=== PATIENT | female | born 1965 | race Caucasian/White ===

== ENCOUNTER 2021-02-02 13:25 | Inpatient (IN) ==
[2021-02-04] MEDS ORDERED: Dextrose Gel 15 GM/37.5 ML TUBE PO PRN ×2 (17:13)
[2021-02-04] MEDS ORDERED: D5% in Water 1,000 ML IVC PRN (17:13)
[2021-02-04] MEDS ORDERED: *HR* Dextrose 50 % in Water (Vial) 50 ML VIAL IVP PRN (17:13)
[2021-02-04] MEDS ORDERED: methocarbamoL 500 MG TABLET PO PRN (17:33)
[2021-02-04] MEDS ORDERED: *HR* Methotrexate 2.5 MG TABLET PO SCH (17:45)
[2021-02-04] MEDS: Furosemide 20 MG TABLET PO SCH (18:21)
[2021-02-04] MEDS: *HR* OxyCODONE Immed Rel 5 MG TABLET PO PRN (18:21)
[2021-02-04] MEDS: Insulin LISPRO 300 UNITS/3 ML VIAL SUBQ SCH (19:49)
[2021-02-04] MEDS: Pregabalin 75 MG CAPSULE PO SCH (19:49)
[2021-02-05] MEDS: *HR* OxyCODONE Immed Rel 5 MG TABLET PO PRN (01:21)
[2021-02-05 06:43] LABS: Basophils % 0.4 %; Eosinophils # 0.1 K/mcL (0.0-0.6); Eosinophils % 1.1 %; Hematocrit 23.8 % (35.3-44.9); Hemoglobin 7.8 g/dL (11.5-15.4); Immature Granulocytes % 3.3 % (0-4); Lymphocytes # 1.7 K/mcL (0.6-4.6); Lymphocytes % 19.2 %; Mean Corpuscular HGB Conc 32.8 g/dL (31.6-35.5); Mean Corpuscular Hemoglobin 30.7 pg (28.0-33.3); Mean Corpuscular Volume 93.7 fL (83.0-100.0); Mean Platelet Volume 9.8 fL (9.4-12.4); Monocytes # 0.6 K/mcL (0.0-1.3); Neutrophils # 6.2 K/mcL (1.6-8.9); Nucleated Red Blood Cells 0.3 /100 WBC (0); Platelet Count 268 K/mcL (140-400); Red Blood Count 2.54 M/mcL (3.82-4.97); Red Cell Distribution Width 13.8 % (11.5-14.5); White Blood Count 9.1 K/mcL (4.3-11.1)
[2021-02-05 07:10] LABS: BUN/Creatinine Ratio 25 (6-26); Blood Urea Nitrogen 14 mg/dL (6-20); Calcium 8.4 mg/dL (8.6-10.3); Carbon Dioxide 32 mEq/L (23-29); Chloride 100 mEq/L (98-107); Glucose 162 mg/dL (70-105); Osmolality,Calculated 296 (280-300); Potassium 3.5 mEq/L (3.5-5.1); Sodium 141 mEq/L (136-145); eGFR For African Americans > 60 (> 60); eGFR For Non-African Americans > 60 (> 60)
[2021-02-05] MEDS: *HR* Enoxaparin 40 MG/0.4 ML SYRINGE SQ SCH (09:37)
[2021-02-05] MEDS: Furosemide 20 MG TABLET PO SCH ×2 (09:37→16:55)
[2021-02-05] MEDS: Insulin LISPRO 300 UNITS/3 ML VIAL SUBQ SCH ×4 (09:37→19:55)
[2021-02-05] MEDS: Pregabalin 75 MG CAPSULE PO SCH ×2 (09:37→19:54)
[2021-02-05] MEDS: Famotidine 20 MG TABLET PO SCH (09:37)
[2021-02-05] MEDS: Loratadine 10 MG TABLET PO SCH (09:37)
[2021-02-05] MEDS: *HR* Metformin 500 MG TABLET PO SCH (09:38)
[2021-02-05] MEDS: Folic Acid 1 MG TABLET PO SCH (09:38)
[2021-02-05] MEDS: Prenatal Vit/FA 1 EACH TABLET PO SCH (09:38)
[2021-02-05 13:21] LABS: Estimated Average Glucose 140 mg/dl; Hemoglobin A1C 6.5 %
[2021-02-05 19:39] LABS: Adenovirus F 40/41 PCR Not detected (Not detect); Astrovirus PCR Not detected (Not detect); C.difficile Toxin A/B Gene PCR DETECTED (Not detect); Campylobacter by PCR Not detected (Not detect); Cryptosporidium by PCR Not detected (Not detect); Cyclospora cayetanensis PCR Not detected (Not detect); E. coli O157 by PCR Not detected (Not detect); Entamoeba histolytica PCR Not detected (Not detect); Enteroaggregative E.coli(EAEC) Not detected (Not detect); Enteropathogenic E.coli(EPEC) Not detected (Not detect); Enterotoxigenic E.coli (ETEC) Not detected (Not detect); Giardia lamblia PCR Not detected (Not detect); Norovirus GI/GII PCR Not detected (Not detect); Plesiomonas shigelloides PCR Not detected (Not detect); Rotavirus A PCR Not detected (Not detect); Salmonella PCR Not detected (Not detect); Sapovirus PCR Not detected (Not detect); Shig/EnteroinvasiveE coli EIEC Not detected (Not detect); Shigalike tox-prod E coli STEC Not detected (Not detect); Vibrio PCR Not detected (Not detect); Vibrio cholerae PCR Not detected (Not detect); Yersinia enterocolitica PCR Not detected (Not detect)
[2021-02-05] MEDS: Acetaminophen 325 MG TABLET PO PRN (19:54)
[2021-02-06] MEDS: Acetaminophen 325 MG TABLET PO PRN ×3 (01:31→20:11)
[2021-02-06] MEDS: *HR* Enoxaparin 40 MG/0.4 ML SYRINGE SQ SCH (04:57)
[2021-02-06] MEDS: *HR* Metformin 500 MG TABLET PO SCH (08:08)
[2021-02-06] MEDS: *HR* OxyCODONE Immed Rel 5 MG TABLET PO PRN ×2 (08:08→23:54)
[2021-02-06] MEDS: Famotidine 20 MG TABLET PO SCH (08:08)
[2021-02-06] MEDS: Pregabalin 75 MG CAPSULE PO SCH ×2 (08:09→20:11)
[2021-02-06] MEDS: Prenatal Vit/FA 1 EACH TABLET PO SCH (08:09)
[2021-02-06] MEDS: Insulin LISPRO 300 UNITS/3 ML VIAL SUBQ SCH ×4 (08:09→20:12)
[2021-02-06] MEDS: Furosemide 20 MG TABLET PO SCH ×2 (08:09→17:35)
[2021-02-06] MEDS: Folic Acid 1 MG TABLET PO SCH (08:09)
[2021-02-06] MEDS: Loratadine 10 MG TABLET PO SCH (08:09)
[2021-02-07] MEDS: *HR* Enoxaparin 40 MG/0.4 ML SYRINGE SQ SCH (04:50)
[2021-02-07] MEDS: *HR* OxyCODONE Immed Rel 5 MG TABLET PO PRN ×3 (05:56→21:16)
[2021-02-07] MEDS: Loratadine 10 MG TABLET PO SCH (08:14)
[2021-02-07] MEDS: Folic Acid 1 MG TABLET PO SCH (08:14)
[2021-02-07] MEDS: Famotidine 20 MG TABLET PO SCH (08:14)
[2021-02-07] MEDS: Furosemide 20 MG TABLET PO SCH ×2 (08:14→17:35)
[2021-02-07] MEDS: Prenatal Vit/FA 1 EACH TABLET PO SCH (08:14)
[2021-02-07] MEDS: Pregabalin 75 MG CAPSULE PO SCH ×2 (08:15→21:17)
[2021-02-07] MEDS: *HR* Metformin 500 MG TABLET PO SCH (08:15)
[2021-02-07] MEDS: Insulin LISPRO 300 UNITS/3 ML VIAL SUBQ SCH ×4 (08:15→21:17)
[2021-02-07] MEDS: Acetaminophen 325 MG TABLET PO PRN (19:21)
[2021-02-08] MEDS: Acetaminophen 325 MG TABLET PO PRN ×3 (00:52→20:55)
[2021-02-08 04:45] LABS: Hematocrit 26.6 % (35.3-44.9); Hemoglobin 8.6 g/dL (11.5-15.4); Mean Corpuscular HGB Conc 32.3 g/dL (31.6-35.5); Mean Corpuscular Hemoglobin 30.7 pg (28.0-33.3); Mean Platelet Volume 9.3 fL (9.4-12.4); Platelet Count 377 K/mcL (140-400); Red Cell Distribution Width 15.9 % (11.5-14.5); White Blood Count 10.2 K/mcL (4.3-11.1)
[2021-02-08 05:01] LABS: Alanine Aminotransferase 40 Units/L (7-52); Albumin 3.4 g/dL (3.5-5.7); Albumin/Globulin Ratio 1.3 (1.1-2.2); Alkaline Phosphatase 113 Units/L (34-104); Aspartate Amino Transferase 28 Units/L (13-39); BUN/Creatinine Ratio 22 (6-26); Bilirubin,Total 0.9 mg/dL (0.3-1.0); Blood Urea Nitrogen 13 mg/dL (6-20); Calcium 9.1 mg/dL (8.6-10.3); Carbon Dioxide 32 mEq/L (23-29); Chloride 99 mEq/L (98-107); Globulin 2.6 g/dL (2.4-3.5); Glucose 165 mg/dL (70-105); Magnesium 1.9 mg/dL (1.6-2.6); Osmolality,Calculated 290 (280-300); Potassium 4.2 mEq/L (3.5-5.1); Sodium 138 mEq/L (136-145); eGFR For African Americans > 60 (> 60); eGFR For Non-African Americans > 60 (> 60)
[2021-02-08] MEDS: *HR* OxyCODONE Immed Rel 5 MG TABLET PO PRN ×2 (05:01→14:20)
[2021-02-08] MEDS: *HR* Enoxaparin 40 MG/0.4 ML SYRINGE SQ SCH (05:02)
[2021-02-08] MEDS: Pregabalin 75 MG CAPSULE PO SCH ×2 (09:33→20:56)
[2021-02-08] MEDS: *HR* Metformin 500 MG TABLET PO SCH (09:33)
[2021-02-08] MEDS: Insulin LISPRO 300 UNITS/3 ML VIAL SUBQ SCH ×4 (09:33→20:56)
[2021-02-08] MEDS: Loratadine 10 MG TABLET PO SCH (09:34)
[2021-02-08] MEDS: Folic Acid 1 MG TABLET PO SCH (09:34)
[2021-02-08] MEDS: Furosemide 20 MG TABLET PO SCH ×2 (09:34→16:18)
[2021-02-08] MEDS: Famotidine 20 MG TABLET PO SCH (09:34)
[2021-02-08] MEDS: Prenatal Vit/FA 1 EACH TABLET PO SCH (09:34)
[2021-02-08] MEDS ORDERED: Ondansetron ODT 4 MG TAB.RAPDIS SL PRN (16:52)
[2021-02-09] MEDS: *HR* OxyCODONE Immed Rel 5 MG TABLET PO PRN ×2 (03:50→21:08)
[2021-02-09] MEDS: *HR* Enoxaparin 40 MG/0.4 ML SYRINGE SQ SCH (03:50)
[2021-02-09] MEDS: Insulin LISPRO 300 UNITS/3 ML VIAL SUBQ SCH ×4 (07:43→21:10)
[2021-02-09] MEDS: Prenatal Vit/FA 1 EACH TABLET PO SCH (07:44)
[2021-02-09] MEDS: Folic Acid 1 MG TABLET PO SCH (07:44)
[2021-02-09] MEDS: Famotidine 20 MG TABLET PO SCH (07:44)
[2021-02-09] MEDS: *HR* Metformin 500 MG TABLET PO SCH (07:44)
[2021-02-09] MEDS: Loratadine 10 MG TABLET PO SCH (07:45)
[2021-02-09] MEDS: Furosemide 20 MG TABLET PO SCH ×2 (07:45→17:26)
[2021-02-09] MEDS: Pregabalin 75 MG CAPSULE PO SCH ×2 (07:45→21:09)
[2021-02-10] MEDS: *HR* Enoxaparin 40 MG/0.4 ML SYRINGE SQ SCH (04:08)
[2021-02-10] MEDS: Famotidine 20 MG TABLET PO SCH (09:52)
[2021-02-10] MEDS: Pregabalin 75 MG CAPSULE PO SCH ×2 (09:52→20:01)
[2021-02-10] MEDS: Furosemide 20 MG TABLET PO SCH ×2 (09:53→17:31)
[2021-02-10] MEDS: Prenatal Vit/FA 1 EACH TABLET PO SCH (09:53)
[2021-02-10] MEDS: Folic Acid 1 MG TABLET PO SCH (09:53)
[2021-02-10] MEDS: Loratadine 10 MG TABLET PO SCH (09:53)
[2021-02-10] MEDS: *HR* Metformin 500 MG TABLET PO SCH (09:53)
[2021-02-10] MEDS: Insulin LISPRO 300 UNITS/3 ML VIAL SUBQ SCH ×4 (09:54→20:01)
[2021-02-10] MEDS: *HR* OxyCODONE Immed Rel 5 MG TABLET PO PRN (20:02)
[2021-02-11] MEDS: Acetaminophen 325 MG TABLET PO PRN ×2 (03:20→14:28)
[2021-02-11] MEDS: *HR* Enoxaparin 40 MG/0.4 ML SYRINGE SQ SCH (05:06)
[2021-02-11 05:15] LABS: Basophils % 0.3 %; Eosinophils # 0.2 K/mcL (0.0-0.6); Eosinophils % 1.5 %; Hematocrit 30.4 % (35.3-44.9); Hemoglobin 9.8 g/dL (11.5-15.4); Immature Granulocytes % 1.5 % (0-4); Lymphocytes # 2.5 K/mcL (0.6-4.6); Lymphocytes % 19.5 %; Mean Corpuscular HGB Conc 32.2 g/dL (31.6-35.5); Mean Corpuscular Volume 96.2 fL (83.0-100.0); Mean Platelet Volume 9.4 fL (9.4-12.4); Monocytes # 0.9 K/mcL (0.0-1.3); Neutrophils # 9.1 K/mcL (1.6-8.9); Platelet Count 438 K/mcL (140-400); Red Blood Count 3.16 M/mcL (3.82-4.97); Red Cell Distribution Width 16.9 % (11.5-14.5); Segmented Neutrophils % 70.2 %; White Blood Count 12.9 K/mcL (4.3-11.1)
[2021-02-11 05:30] LABS: BUN/Creatinine Ratio 20 (6-26); Blood Urea Nitrogen 14 mg/dL (6-20); Calcium 8.9 mg/dL (8.6-10.3); Carbon Dioxide 31 mEq/L (23-29); Chloride 96 mEq/L (98-107); Glucose 181 mg/dL (70-105); Osmolality,Calculated 285 (280-300); Potassium 4.3 mEq/L (3.5-5.1); Sodium 135 mEq/L (136-145); eGFR For African Americans > 60 (> 60); eGFR For Non-African Americans > 60 (> 60)
[2021-02-11] MEDS: *HR* Metformin 500 MG TABLET PO SCH (08:08)
[2021-02-11] MEDS: Pregabalin 75 MG CAPSULE PO SCH ×2 (08:09→21:54)
[2021-02-11] MEDS: Folic Acid 1 MG TABLET PO SCH (08:09)
[2021-02-11] MEDS: Prenatal Vit/FA 1 EACH TABLET PO SCH (08:09)
[2021-02-11] MEDS: Famotidine 20 MG TABLET PO SCH (08:09)
[2021-02-11] MEDS: Loratadine 10 MG TABLET PO SCH (08:09)
[2021-02-11] MEDS: Furosemide 20 MG TABLET PO SCH ×2 (08:09→14:37)
[2021-02-11] MEDS: Insulin LISPRO 300 UNITS/3 ML VIAL SUBQ SCH ×4 (08:30→21:38)
[2021-02-11] MEDS: *HR* OxyCODONE Immed Rel 5 MG TABLET PO PRN (21:54)
[2021-02-12] MEDS: *HR* OxyCODONE Immed Rel 5 MG TABLET PO PRN (03:54)
[2021-02-12] MEDS: *HR* Enoxaparin 40 MG/0.4 ML SYRINGE SQ SCH (03:54)
[2021-02-12] MEDS: Insulin LISPRO 300 UNITS/3 ML VIAL SUBQ SCH ×3 (10:04→18:52)
[2021-02-12] MEDS: Prenatal Vit/FA 1 EACH TABLET PO SCH (10:14)
[2021-02-12] MEDS: Folic Acid 1 MG TABLET PO SCH (10:14)
[2021-02-12] MEDS: Pregabalin 75 MG CAPSULE PO SCH ×2 (10:14→20:22)
[2021-02-12] MEDS: *HR* Metformin 500 MG TABLET PO SCH (10:14)
[2021-02-12] MEDS: Loratadine 10 MG TABLET PO SCH (10:15)
[2021-02-12] MEDS: Furosemide 20 MG TABLET PO SCH ×2 (10:15→15:17)
[2021-02-12] MEDS: Famotidine 20 MG TABLET PO SCH (10:15)
[2021-02-12] MEDS: Acetaminophen 325 MG TABLET PO PRN ×2 (10:41→20:22)
[2021-02-12 17:01] LABS: Bilirubin,Urine Negative (Negative); Blood,Urine Negative (Negative); Clarity,Urine Clear (Clear); Color,Urine Yellow (Yellow); Glucose,Urine (UA) Normal (Normal); Ketones,Urine Negative (Negative); Leukocyte Esterase,Urine Trace (Negative); Nitrite,Urine Negative (Negative); Protein,Urine Negative (Neg-Trace); Specific Gravity,Urine 1.015 (1.010-1.025); Urobilinogen,Urine Normal (Normal)
[2021-02-12 17:13] LABS: Amorphous Sediment,Urine Few per hpf (None-Few); Renal Epithelial Cells,Urine Few per hpf (None-Few); Squamous Epithelial Cell,Urine Few per hpf (None-Few); WBC,Urine 0-3 per hpf (0-3)
[2021-02-12 18:48] VITALS: BP 127/78
== END 2021-02-12 20:55 | disposition home health service (06) | DRG 561 ==
LOC: INPGRE 02-04 14:23
PROVIDERS: ADMIT Family Medicine; ATTEND Family Medicine